=== PATIENT | female | born 1960 | race Caucasian/White ===

== ENCOUNTER 2020-07-08 14:43 | Emergency (ER) | payer BC ==
[2020-07-08 14:59] VITALS: BP 122/71
--- NOTE | 2020-07-08 15:14 | ED Physician Documentation ---
PD HPI UPPER EXT INJURY - Stated complaint Stated Complaint: GLF,RT SHOULDER/HIP/KNEE PX - Chief complaint Chief Complaint: Trauma Ext - History obtained from History obtained from: Patient - History of Present Illness Location: Right, Shoulder, Other (lateral hip and anterior knee) Type of injury: Fall ([place], mainly catching herself onto right shoulder. Some at right knee and lateral hip. Did not strike head.) Where injury occurred: [place] Timing - onset: Today Timing - details: Abrupt onset, Still present (pain in the shoulder) Worsened by: Moving, Palpating Associated symptoms: No: Weakness, Numbness, Swelling Similar symptoms before: Other (has been having pain with shoulder rotator cuff on right with awaiting physical therapy. having much worse pain with the fall onto it.) Recently seen: Not recently seen Review of Systems Constitutional: denies: Fever, Chills Nose: denies: Rhinorrhea / runny nose, Congestion Throat: denies: Sore throat Respiratory: denies: Cough Skin: denies: Abrasion (s), Laceration (s) Neurologic: denies: Focal weakness, Numbness PD PAST MEDICAL HISTORY - Past Medical History Cardiovascular: None Respiratory: None Musculoskeletal: Other (right rotator cuff tendonitis. ) - Present Medications Home Medications: Ambulatory Orders Medication Instructions Recorded Confirmed tiZANidine [Zanaflex] 4 mg PO Q8H PRN #25 tablet 07/08/20 - Allergies Allergies/Adverse Reactions: Allergies Allergy/AdvReac Type Severity Reaction Status Date / Time No Known Drug Allergies Allergy Verified 07/08/20 14:59 PD ED PE NORMAL - Vitals Vital signs reviewed: Yes - General General: Alert and oriented X 3, No acute distress, Well developed/nourished - HEENT HEENT: Atraumatic - Neck Neck: Supple, no meningeal sign, No bony TTP - Cardiac Cardiac: RRR, No murmur - Respiratory Respiratory: Clear bilaterally, Other (no chestwall tenderness) - Abdomen Abdomen: Soft, Non tender - Derm Derm: Normal color, Warm and dry - Extremities Extremities: Other (right shoulder with tenderness anterolateral without effusion. No redness/abrasion. ) - Neuro Neuro: Alert and oriented X 3, No motor deficit, No sensory deficit Results - Vitals Vitals: Vital Signs - 24 hr 07/08/20 14:53 Temperature 36.2 C L Heart Rate 77 Respiratory 14 Rate Blood Pressure 122/71 O2 Saturation 98 Oxygen O2 Source Room air - Rads (name of study) right shoulder Radiology: Prelim report reviewed (no acute injury. Calcific changes noted c/w chronic tendonitis. ), See rad report PD MEDICAL DECISION MAKING - ED course Complexity details: reviewed results, considered differential (worsened rotator cuff underlying inflammation. ), d/w patient Departure - Departure Disposition: 01 Home, Self Care Clinical Impression: Accidental fall Qualifiers: Encounter type: initial encounter Qualified Code(s): W19.XXXA - Unspecified fall, initial encounter Right shoulder strain Qualifiers: Encounter type: initial encounter Qualified Code(s): S46.911A - Strain of unspecified muscle, fascia and tendon at shoulder and upper arm level, right arm, initial encounter Condition: Stable Record reviewed to determine appropriate education?: Yes Instructions: ED Sprain Shoulder Follow-Up: Jazmín Mcduffie MD [Primary Care Provider] - Prescriptions: tiZANidine [Zanaflex] 4 mg PO Q8H PRN #25 tablet PRN Reason: Spasms Comments: Use the sling as needed for comfort and support of the shoulder with the acute injury. Gentle range of motion a few times a day to prevent stiffening of the shoulder. Progress use back to baseline as tolerated. Tylenol 500 mg 4 times a day for the next several days to week. Add tizanidine muscle relaxant for stiffness and spasm. Follow-up with your primary care. Discharge Date/Time: 07/08/20 16:30
[2020-07-08] MEDS ORDERED: ACETAMINOPHEN 325 MG TABLET PO STA (15:31)
[2020-07-08] MEDS ORDERED: methocarbamoL 500 MG TABLET PO STA (15:31)
--- NOTE | 2020-07-08 15:55 | XRAY Report ---
PROCEDURE: Shoulder 3 View RT INDICATIONS: fall to right shoulder TECHNIQUE: 3 views of the shoulder were acquired. COMPARISON: None. FINDINGS: Bones: No fractures or dislocations. No suspicious bony lesions. Visualized ribs appear intact. S evere acromioclavicular degenerative narrowing. Soft tissues: No suspicious soft tissue calcifications. IMPRESSION: No visualized acute fracture or dislocation. However, occult injury cannot be excluded. Recommend short interval imaging follow-up in 7-10 days as clinically indicated for additional evalua tion. Reviewed by: Chyna Topete MD on 07/08/2020 3:53 PM [facility] Approved by: Chyna Topete MD on 07/08/2020 3:53 PM [facility] Station ID: [id number]
== END 2020-07-08 16:30 | disposition home or self-care (01) ==
LOC: ED 14:43
DX: S46.911A Strain of unspecified muscle, fascia and tendon at shoulder and upper arm level, right arm, initial encounter (principal); W18.09XA Striking against other object with subsequent fall, initial encounter; Y93.I9 Activity, other involving external motion
CPT/HCPCS: 73030; 99283; 99284; A9270

== ENCOUNTER 2020-07-20 16:55 | Outpatient (CLI) | payer BC | END 2020-07-20 16:56 | disposition home or self-care (01) | LOC: COV 16:55 | PROVIDERS: ATTEND Student in an Organized Health Care Education/Training Program | DX: Z01.812 Encounter for preprocedural laboratory examination (principal); M75.121 Complete rotator cuff tear or rupture of right shoulder, not specified as traumatic; Z20.822 Contact with and (suspected) exposure to COVID-19 ==

== ENCOUNTER 2020-09-09 13:39 | Outpatient (CLI) | payer BC | END 2020-09-09 13:40 | disposition home or self-care (01) | LOC: COV 13:39 | PROVIDERS: ATTEND Otolaryngology | DX: Z01.812 Encounter for preprocedural laboratory examination (principal); Z20.822 Contact with and (suspected) exposure to COVID-19 | CPT/HCPCS: 86769 ==

== ENCOUNTER 2020-12-17 11:25 | Outpatient (CLI) | payer BC ==
[2020-12-17 14:38] LABS: BASOPHILS % (AUTO) 0.7 %; EOSINOPHILS # (AUTO) 0.1 10^3/uL (0.0-0.7); HCT - HEMATOCRIT 44.5 % (37.0-47.0); HGB - HEMOGLOBIN 14.6 g/dL (12.0-16.0); LYMPHOCYTES # (AUTO) 1.6 10^3/uL (1.5-3.5); LYMPHOCYTES % (AUTO) 28.1 %; MEAN CORPUSCULAR HEMOGLOBIN 29.3 pg (27.0-31.0); MEAN CORPUSCULAR HGB CONC 32.8 g/dL (32.0-36.0); MEAN CORPUSCULAR VOLUME 89.4 fL (81.0-99.0); MEAN PLATELET VOLUME 10.9 fL (7.9-10.8); MONOCYTES # (AUTO) 0.4 10^3/uL (0.0-1.0); MONOCYTES % (AUTO) 7.2 %; NEUTROPHILS # (AUTO) 3.5 10^3/uL (1.5-6.6); NEUTROPHILS % (AUTO) 61.8 %; PLT - PLATELET COUNT 226 10^3/uL (130-450); RED BLOOD COUNT 4.98 10^6/uL (4.20-5.40); RED CELL DISTRIBUTION WIDTH 13.8 % (12.0-15.0); WHITE BLOOD COUNT 5.6 x10^3/uL (4.8-10.8)
[2020-12-17 15:29] LABS: THYROID STIMULATING HORMONE 0.64 uIU/mL (0.34-5.60)
[2020-12-17 15:34] LABS: ALBUMIN 4.4 g/dL (3.2-5.5); ALBUMIN/GLOBULIN RATIO 1.7 (1.0-2.2); BILIRUBIN,TOTAL 0.8 mg/dL (0.2-1.0); CALCIUM 9.9 mg/dL (8.5-10.3); CREATININE 0.6 mg/dL (0.4-1.0); POTASSIUM 4.5 mmol/L (3.5-5.0)
[2020-12-17 15:37] LABS: FERRITIN 22.3 ng/mL (11.0-306.8)
[2020-12-17 15:40] LABS: FOLATE 12.56 ng/mL (5.90 - >24.8)
== END 2020-12-17 11:26 | disposition home or self-care (01) ==
LOC: LAB.S 11:25
DX: K90.0 Celiac disease (principal); E55.9 Vitamin D deficiency, unspecified
CPT/HCPCS: 36415; 80053; 82306; 82607; 82728; 82746; 83540; 84443; 84466; 85025

== ENCOUNTER 2021-01-15 10:58 | Outpatient (CLI) | payer BC ==
[2021-01-15 16:02] LABS: FREE T3 2.73 pg/mL (2.5-3.9); THYROID STIMULATING HORMONE 0.54 uIU/mL (0.34-5.60)
[2021-01-15 16:03] LABS: FREE T4 (FREE THYROXINE) 1.15 ng/dL (0.58-1.64)
== END 2021-01-15 10:59 | disposition home or self-care (01) ==
LOC: LAB.S 10:58
PROVIDERS: ATTEND Internal Medicine
DX: E05.00 Thyrotoxicosis with diffuse goiter without thyrotoxic crisis or storm (principal)
CPT/HCPCS: 36415; 84439; 84443; 84481

== ENCOUNTER 2021-01-27 08:32 | Outpatient (CLI) | payer BC ==
[2021-01-27 09:28] LABS: BASOPHILS # (AUTO) 0.1 10^3/uL (0.0-0.1); BASOPHILS % (AUTO) 1.3 %; EOSINOPHILS # (AUTO) 0.1 10^3/uL (0.0-0.7); EOSINOPHILS % (AUTO) 2.3 %; HCT - HEMATOCRIT 43.1 % (37.0-47.0); HGB - HEMOGLOBIN 14.1 g/dL (12.0-16.0); LYMPHOCYTES # (AUTO) 1.4 10^3/uL (1.5-3.5); LYMPHOCYTES % (AUTO) 28.7 %; MEAN CORPUSCULAR HEMOGLOBIN 29.5 pg (27.0-31.0); MEAN CORPUSCULAR HGB CONC 32.7 g/dL (32.0-36.0); MEAN CORPUSCULAR VOLUME 90.2 fL (81.0-99.0); MEAN PLATELET VOLUME 9.5 fL (7.9-10.8); MONOCYTES # (AUTO) 0.3 10^3/uL (0.0-1.0); MONOCYTES % (AUTO) 6.2 %; NEUTROPHILS # (AUTO) 2.9 10^3/uL (1.5-6.6); NEUTROPHILS % (AUTO) 61.1 %; PLT - PLATELET COUNT 215 10^3/uL (130-450); RED BLOOD COUNT 4.78 10^6/uL (4.20-5.40); RED CELL DISTRIBUTION WIDTH 14.3 % (12.0-15.0); WHITE BLOOD COUNT 4.7 x10^3/uL (4.8-10.8)
[2021-01-27 09:41] LABS: ALBUMIN 4.2 g/dL (3.2-5.5); ALBUMIN/GLOBULIN RATIO 1.7 (1.0-2.2); BILIRUBIN,TOTAL 0.8 mg/dL (0.2-1.0); CALCIUM 9.7 mg/dL (8.5-10.3); CREATININE 0.7 mg/dL (0.4-1.0); TOTAL PROTEIN 6.7 g/dL (6.7-8.2)
[2021-01-27 09:58] LABS: CORTISOL 15.7 ug/dL
[2021-01-27 09:59] LABS: THYROID STIMULATING HORMONE 0.59 uIU/mL (0.34-5.60)
[2021-01-27 10:01] LABS: FREE T4 (FREE THYROXINE) 1.33 ng/dL (0.58-1.64)
[2021-01-27 10:02] LABS: FREE T3 2.67 pg/mL (2.5-3.9)
[2021-01-27 10:07] LABS: FERRITIN 25.5 ng/mL (11.0-306.8)
[2021-01-27 10:10] LABS: FOLATE 10.2 ng/mL (5.90 - >24.8)
[2021-01-27 13:14] LABS: ESTIMATED AVERAGE GLUCOSE 108 mg/dL (70-100); HEMOGLOBIN A1c% 5.4 % (4.27-6.07)
[2021-01-29 11:16] LABS: COMPLEMENT COMPONENT C3C 131 mg/dL (83-193)
[2021-02-06 11:26] LABS: SELENIUM 131 mcg/L (63-160)
[2021-02-07 07:22] LABS: COPPER 82 mcg/dL (70-175)
== END 2021-01-27 08:33 | disposition home or self-care (01) ==
LOC: LAB 08:32
PROVIDERS: ATTEND Family Medicine Sports Medicine
DX: E16.1 Other hypoglycemia (principal); E03.9 Hypothyroidism, unspecified; E88.81 Metabolic syndrome and other insulin resistance; E78.5 Hyperlipidemia, unspecified; K90.0 Celiac disease; E55.9 Vitamin D deficiency, unspecified; E61.1 Iron deficiency; R79.89 Other specified abnormal findings of blood chemistry; E78.41 Elevated Lipoprotein(a)
CPT/HCPCS: 36415; 80053; 80061; 81599; 82024; 82172; 82306; 82525; 82533; 82607; 82728; 82746; 83036; 83520; 83695; 83704; 84255; 84439; 84443; 84481; 84630; 85025; 86141; 86160

== ENCOUNTER 2021-02-18 08:00 | Outpatient (CLI) | payer BC ==
[2021-02-18 16:00] LABS: BILIRUBIN,URINE NEGATIVE (NEGATIVE); GLUCOSE, URINE (UA) NEGATIVE (NEGATIVE); KETONES,URINE (UA) NEGATIVE (NEGATIVE); LEUKOCYTE ESTERASE, URINE MODERATE (NEGATIVE); NITRITE,URINE POSITIVE (NEGATIVE); OCCULT BLOOD,URINE NEGATIVE (NEGATIVE); PROTEIN,URINE TRACE mg/dL (NEGATIVE); UROBILINOGEN,URINE 1 (NORMAL) E.U./dL (NORMAL)
[2021-02-18 16:26] LABS: BACTERIA,URINE Few /HPF (None Seen); CLARITY,URINE SL. CLOUDY (CLEAR); RBC,URINE 0-5 /HPF (0-5); SQUAMOUS EPITHELIAL CELL,UR RARE Squamous (<= Few); WBC,URINE >25 /HPF (0-5)
== END 2021-02-18 23:59 | disposition home or self-care (01) ==
LOC: LAB.S 08:00
PROVIDERS: ATTEND Emergency Medicine
DX: R30.0 Dysuria (principal)
CPT/HCPCS: 81001; 87086; 87181

== ENCOUNTER 2021-02-22 09:48 | Outpatient (CLI) | payer BC ==
--- NOTE | 2021-03-01 14:19 | DEXA Report ---
PROCEDURE: Dexa Spine and/or Hip INDICATIONS: VITAMIN D DEFICIENCY TECHNIQUE: Dual energy x-ray absorptiometry (DXA) was performed on a [employer] System. Regions measur ed are the AP Spine, femoral neck, and if needed forearm. COMPARISON: None. FINDINGS: Lumbar Spine: Bone Mineral Density 1.434 g/cm/cm,T score 2.1, normal Left Hip: Bone Mineral Density 0.905 g/cm/cm,T score -0.8, normal Left Femoral Neck: Bone Mineral Density 0.853 g/cm/cm, T score -1.3, mild osteopenia (T score greater or equal to -1.0: NORMAL) (T score from -1.1 to -2.4: OSTEOPENIA) (T score less than or equal to -2.5 to: OSTEOPOROSIS) Impression: Mild osteopenia in the left femoral neck. Patients with diagnosis of osteoporosis or osteopenia should have regular bone mineral density assess ment. For those eligible for Medicare, routine testing is allowed once every 2 years. Testing frequ ency can be increased for patients who have rapidly progressing disease or for those who are receivin g medical therapy to restore bone mass. Reviewed by: Chyna Topete MD on 03/01/2021 2:18 PM PDT Approved by: Chyna Topete MD on 03/01/2021 2:18 PM PDT Station ID: [id number]
== END 2021-02-22 09:49 | disposition home or self-care (01) ==
LOC: DI 09:48
PROVIDERS: ATTEND Internal Medicine Gastroenterology
DX: Z13.820 Encounter for screening for osteoporosis (principal); M85.88 Other specified disorders of bone density and structure, other site; E55.9 Vitamin D deficiency, unspecified

== ENCOUNTER 2021-03-14 13:28 | Outpatient (CLI) | payer BC ==
--- NOTE | 2021-03-15 11:49 | Mammography Report ---
BILATERAL DIGITAL SCREENING MAMMOGRAM 3D/2D WITH AUGMENTATION: 03/14/2021 CLINICAL: Routine screening. Personal history of left breast cancer. Comparison is made to exams dated: 12/10/2019 mammogram, 11/21/2018 mammogram, and 07/04/2018 mammogram - [facility]. The tissue of both breasts is predominantly fatty. Bilateral breast implants are stable and intact. There are benign calcifications in the right breast . There also is a biopsy clip in the right breast. Additionally, there are benign post operative fi ndings and biopsy clips in the left breast. No significant masses, calcifications, or other findings are seen in either breast. There has been no significant interval change. IMPRESSION: BENIGN There is no mammographic evidence of malignancy. A 1 year screening mammogram is recommended. This exam was interpreted at Station ID: [id number]. NOTE: For mammograms, a report in lay terms will be sent to the patient. Approximately 15% of breast malignancies will not be visualized mammographically. In the management of a palpable breast mass, a negative mammogram must not discourage biopsy of a clinically suspicious lesion. Electronically Signed By: Leydi [email or web address]:03/15/2021 11:21:21 ACR BI-RADS Category 2: Benign Finding(s) 3342F PARENCHYMAL PATTERN: (F) - The breast(s) demonstrate(s) diffuse fatty replacement. BI-RADS CATEGORY: (2) - 2 RECOMMENDATION: (ANNUAL) - Recommend routine annual screening mammography. [id number] 1 year screening LATERALITY: (B)
== END 2021-03-14 13:29 | disposition home or self-care (01) ==
LOC: DI.S 13:28
DX: Z12.31 Encounter for screening mammogram for malignant neoplasm of breast (principal); Z85.3 Personal history of malignant neoplasm of breast; Z98.82 Breast implant status

== ENCOUNTER 2021-07-16 13:30 | Outpatient (CLI) | payer BC ==
[2021-07-16 21:13] LABS: THYROID STIMULATING HORMONE 0.27 uIU/mL (0.34-5.60)
[2021-07-16 21:14] LABS: FREE T3 2.57 pg/mL (2.5-3.9)
[2021-07-16 21:15] LABS: FREE T4 (FREE THYROXINE) 1.23 ng/dL (0.58-1.64)
== END 2021-07-16 13:31 | disposition home or self-care (01) ==
LOC: LAB.S 13:30
PROVIDERS: ATTEND Internal Medicine
DX: E05.00 Thyrotoxicosis with diffuse goiter without thyrotoxic crisis or storm (principal)
CPT/HCPCS: 36415; 84439; 84443; 84481

== ENCOUNTER 2021-08-19 08:00 | Outpatient (CLI) | payer BC ==
--- NOTE | 2021-08-19 16:53 | XRAY Report ---
PROCEDURE: Chest 2 View X-Ray INDICATIONS: COUGH TECHNIQUE: 2 view(s) of the chest. COMPARISON: None. FINDINGS: Surgical changes and devices: Left chest wall surgical clips. Suture anchor in the right humerus. Lungs and pleura: No pleural effusions or pneumothorax. Lungs are clear. Mediastinum: Mediastinal contours are normal. Heart size is normal. Bones and chest wall: No suspicious bony abnormalities. Soft tissues appear unremarkable. IMPRESSION: No acute cardiopulmonary disease process. Reviewed by: Laurie Davis MD, PhD on 08/19/2021 4:52 PM PDT Approved by: Laurie Davis MD, PhD on 08/19/2021 4:52 PM PDT Station ID: [id number]
== END 2021-08-19 23:59 | disposition home or self-care (01) ==
LOC: DI.S 08:00
PROVIDERS: ATTEND Registered Nurse
DX: R05.9 Cough, unspecified (principal); R53.83 Other fatigue

== ENCOUNTER 2021-08-19 08:00 | Outpatient (CLI) | payer BC | END 2021-08-19 23:59 | disposition home or self-care (01) | LOC: LAB.R 08:00 | PROVIDERS: ATTEND Registered Nurse | DX: R05.9 Cough, unspecified (principal); Z20.822 Contact with and (suspected) exposure to COVID-19 ==

== ENCOUNTER 2021-09-06 14:14 | Outpatient (CLI) | payer BC ==
[2021-09-06 20:46] LABS: FREE T3 2.84 pg/mL (2.5-3.9)
[2021-09-06 20:47] LABS: FREE T4 (FREE THYROXINE) 1.11 ng/dL (0.58-1.64); THYROID STIMULATING HORMONE 1.04 uIU/mL (0.34-5.60)
== END 2021-09-06 14:15 | disposition home or self-care (01) ==
LOC: LAB.S 14:14
PROVIDERS: ATTEND Internal Medicine
DX: E89.0 Postprocedural hypothyroidism (principal)
CPT/HCPCS: 36415; 84439; 84443; 84481

== ENCOUNTER 2022-02-01 11:22 | Outpatient (CLI) | payer BC ==
[2022-02-01 14:38] LABS: BASOPHILS # (AUTO) 0.1 10^3/uL (0.0-0.1); BASOPHILS % (AUTO) 0.9 %; EOSINOPHILS # (AUTO) 0.2 10^3/uL (0.0-0.7); HCT - HEMATOCRIT 41.2 % (37.0-47.0); HGB - HEMOGLOBIN 13.6 g/dL (12.0-16.0); LYMPHOCYTES # (AUTO) 2.1 10^3/uL (1.5-3.5); LYMPHOCYTES % (AUTO) 32.7 %; MEAN CORPUSCULAR HEMOGLOBIN 29.8 pg (27.0-31.0); MEAN CORPUSCULAR VOLUME 90.4 fL (81.0-99.0); MONOCYTES # (AUTO) 0.4 10^3/uL (0.0-1.0); MONOCYTES % (AUTO) 6.9 %; NEUTROPHILS # (AUTO) 3.6 10^3/uL (1.5-6.6); NEUTROPHILS % (AUTO) 56.3 %; PLT - PLATELET COUNT 208 10^3/uL (130-450); RED BLOOD COUNT 4.56 10^6/uL (4.20-5.40); RED CELL DISTRIBUTION WIDTH 12.9 % (12.0-15.0); WHITE BLOOD COUNT 6.4 x10^3/uL (4.8-10.8)
[2022-02-01 15:24] LABS: ALBUMIN 4.2 g/dL (3.2-5.5); ALBUMIN/GLOBULIN RATIO 1.6 (1.0-2.2); BILIRUBIN,TOTAL 0.4 mg/dL (0.2-1.0); CALCIUM 9.7 mg/dL (8.5-10.3); CREATININE 0.8 mg/dL (0.4-1.0); POTASSIUM 4.6 mmol/L (3.5-5.0); TOTAL PROTEIN 6.8 g/dL (6.7-8.2)
[2022-02-01 15:33] LABS: THYROID STIMULATING HORMONE 0.23 uIU/mL (0.34-5.60)
[2022-02-01 15:40] LABS: FERRITIN 85.1 ng/mL (11.0-306.8)
== END 2022-02-01 11:23 | disposition home or self-care (01) ==
LOC: LAB.S 11:22
PROVIDERS: ATTEND Internal Medicine Gastroenterology
DX: K90.0 Celiac disease (principal)
CPT/HCPCS: 36415; 80053; 82306; 82607; 82728; 82746; 83540; 84443; 84466; 85025

== ENCOUNTER 2022-03-16 09:07 | Outpatient (CLI) | payer BC ==
--- NOTE | 2022-03-17 09:43 | Mammography Report ---
BILATERAL DIGITAL SCREENING MAMMOGRAM 3D/2D WITH AUGMENTATION: 03/16/2022 CLINICAL: Routine screening. Personal history of left breast cancer. Comparison is made to exams dated: 03/14/2021 mammogram - [facility], 12/10/2019 ma mmogram, 11/21/2018 mammogram, and 07/04/2018 mammogram - [facility]. Both breasts are almost entirely fatty (category a/<25% glandular tissue). Bilateral breast implants are stable and intact. There are benign calcifications in the right breast . There also is a biopsy clip in the right breast. Additionally, there are benign post operative fi ndings and biopsy clips in the left breast. No significant masses, calcifications, or other findings are seen in either breast. There has been no significant interval change. IMPRESSION: BENIGN There is no mammographic evidence of malignancy. A 1 year screening mammogram is recommended. This exam was interpreted at Station ID: [id number]. NOTE: For mammograms, a report in lay terms will be sent to the patient. Approximately 15% of breast malignancies will not be visualized mammographically. In the management of a palpable breast mass, a negative mammogram must not discourage biopsy of a clinically suspicious lesion. Electronically Signed By: Daryn Baker M.D. [email or web address]:03/16/2022 15:59:54 ACR BI-RADS Category 2: Benign Finding(s) 3342F PARENCHYMAL PATTERN: (F) - The breast(s) demonstrate(s) diffuse fatty replacement. BI-RADS CATEGORY: (2) - 2 RECOMMENDATION: (ANNUAL) - Recommend routine annual screening mammography. [id number] 1 year screening LATERALITY: (B)
== END 2022-03-16 09:08 | disposition home or self-care (01) ==
LOC: DI.S 09:07
DX: Z12.31 Encounter for screening mammogram for malignant neoplasm of breast (principal); Z85.3 Personal history of malignant neoplasm of breast

== ENCOUNTER 2022-06-07 11:30 | Outpatient (CLI) | payer BC ==
[2022-06-08 09:10] LABS: HCV AB <0.1 s/co ratio (0.0-0.9)
== END 2022-06-07 11:31 | disposition home or self-care (01) ==
LOC: LAB.S 11:30
PROVIDERS: ATTEND Registered Nurse
DX: Z00.00 Encounter for general adult medical examination without abnormal findings (principal); E88.81 Metabolic syndrome and other insulin resistance; E16.1 Other hypoglycemia; I25.10 Atherosclerotic heart disease of native coronary artery without angina pectoris; E78.5 Hyperlipidemia, unspecified; E03.9 Hypothyroidism, unspecified; K90.0 Celiac disease; E55.9 Vitamin D deficiency, unspecified; E27.0 Other adrenocortical overactivity; E78.41 Elevated Lipoprotein(a)
CPT/HCPCS: 36415; 81599; 83003; 84305; 86803

== ENCOUNTER 2022-06-20 13:26 | Outpatient (CLI) | payer BC ==
[2022-06-20 20:43] LABS: THYROID STIMULATING HORMONE 0.46 uIU/mL (0.34-5.60)
[2022-06-20 20:45] LABS: FREE T3 2.46 pg/mL (2.5-3.9); FREE T4 (FREE THYROXINE) 1.14 ng/dL (0.58-1.64)
== END 2022-06-20 13:27 | disposition home or self-care (01) ==
LOC: LAB.S 13:26
PROVIDERS: ATTEND Internal Medicine
DX: E89.0 Postprocedural hypothyroidism (principal); E05.00 Thyrotoxicosis with diffuse goiter without thyrotoxic crisis or storm
CPT/HCPCS: 36415; 84439; 84443; 84481

== ENCOUNTER 2022-06-22 10:18 | Outpatient (CLI) | payer BC ==
[2022-06-22 15:31] LABS: % IRON SATURATION 20 % (20-50); IRON 84 ug/dL (28-170); TOTAL IRON BINDING CAPACITY 423 ug/dL (250-450); TRANSFERRIN 302 mg/dL (192-382)
== END 2022-06-22 10:19 | disposition home or self-care (01) ==
LOC: LAB.S 10:18
PROVIDERS: ATTEND Chiropractor
DX: D50.9 Iron deficiency anemia, unspecified (principal); E03.9 Hypothyroidism, unspecified
CPT/HCPCS: 36415; 82728; 83540; 84466; 84482

== ENCOUNTER 2022-07-16 08:00 | Outpatient (CLI) | payer BC | END 2022-07-16 23:59 | disposition home or self-care (01) | LOC: LAB.S 08:00 | PROVIDERS: ATTEND Physician Assistant | DX: R30.0 Dysuria (principal) | CPT/HCPCS: 87086 ==

== ENCOUNTER 2023-04-03 09:55 | Outpatient (CLI) | payer BC ==
[2023-04-03 10:50] LABS: BASOPHILS # (AUTO) 0.1 10^3/uL (0.0-0.1); BASOPHILS % (AUTO) 0.8 %; EOSINOPHILS # (AUTO) 0.1 10^3/uL (0.0-0.7); EOSINOPHILS % (AUTO) 1.7 %; HGB - HEMOGLOBIN 14.5 g/dL (12.0-16.0); LYMPHOCYTES # (AUTO) 1.5 10^3/uL (1.5-3.5); LYMPHOCYTES % (AUTO) 22.8 %; MEAN CORPUSCULAR HEMOGLOBIN 29.7 pg (27.0-31.0); MEAN CORPUSCULAR HGB CONC 32.2 g/dL (32.0-36.0); MEAN PLATELET VOLUME 9.7 fL (7.9-10.8); MONOCYTES # (AUTO) 0.5 10^3/uL (0.0-1.0); MONOCYTES % (AUTO) 7.7 %; NEUTROPHILS # (AUTO) 4.3 10^3/uL (1.5-6.6); NEUTROPHILS % (AUTO) 66.7 %; PLT - PLATELET COUNT 235 10^3/uL (130-450); RED BLOOD COUNT 4.89 10^6/uL (4.20-5.40); RED CELL DISTRIBUTION WIDTH 14.5 % (12.0-15.0); WHITE BLOOD COUNT 6.4 x10^3/uL (4.8-10.8)
[2023-04-03 11:06] LABS: ALBUMIN 4.3 g/dL (3.2-5.5); BILIRUBIN,TOTAL 0.6 mg/dL (0.2-1.0); CALCIUM 10.1 mg/dL (8.5-10.3); CREATININE 0.9 mg/dL (0.6-1.3); POTASSIUM 4.3 mmol/L (3.5-4.5); TOTAL PROTEIN 6.4 g/dL (6.4-8.9)
[2023-04-03 11:21] LABS: THYROID STIMULATING HORMONE 1.67 uIU/mL (0.34-5.60)
[2023-04-03 11:29] LABS: FERRITIN 19.5 ng/mL (11.0-306.8)
[2023-04-04 07:10] LABS: VITAMIN D 25-HYDROXY 50.2 ng/mL (30.0-100.0)
== END 2023-04-03 09:56 | disposition home or self-care (01) ==
LOC: LAB 09:55
PROVIDERS: ATTEND Internal Medicine Gastroenterology
DX: R14.0 Abdominal distension (gaseous) (principal); R10.13 Epigastric pain; K90.0 Celiac disease; R19.7 Diarrhea, unspecified; K64.0 First degree hemorrhoids; E11.9 Type 2 diabetes mellitus without complications; E55.9 Vitamin D deficiency, unspecified; R10.84 Generalized abdominal pain; R10.32 Left lower quadrant pain; Z98.84 Bariatric surgery status; R19.4 Change in bowel habit; K21.9 Gastro-esophageal reflux disease without esophagitis
CPT/HCPCS: 36415; 80053; 82306; 82607; 82728; 82746; 82784; 83540; 84443; 84466; 85025; 86231; 86364

== ENCOUNTER 2023-04-03 09:57 | Outpatient (CLI) | payer BC ==
--- NOTE | 2023-04-03 21:57 | DEXA Report ---
PROCEDURE: Dexa Spine and/or Hip INDICATIONS: OSTEOPENIA TECHNIQUE: Dual energy x-ray absorptiometry (DXA) was performed on a [employer] System. Regions measur ed are the AP Spine, femoral neck, and if needed forearm. COMPARISON: DEXA, 02/22/2021 FINDINGS: Lumbar Spine: Bone Mineral Density 1.413 g/cm/cm,T score 1.9. Not significantly changed. Left Femoral Neck: Bone Mineral Density 0.933 g/cm/cm, T score -0.8. Left Hip: Bone Mineral Density 0.917 g/cm/cm,T score -0.7. Not significantly changed. (T score greater or equal to -1.0: NORMAL) (T score from -1.1 to -2.4: OSTEOPENIA) (T score less than or equal to -2.5 to: OSTEOPOROSIS) Impression: 1. By WHO criteria, this patient has normal bone density. 2. Compared to the last exam, there is no significant change. Patients with diagnosis of osteoporosis or osteopenia should have regular bone mineral density assess ment. For those eligible for Medicare, routine testing is allowed once every 2 years. Testing frequ ency can be increased for patients who have rapidly progressing disease or for those who are receivin g medical therapy to restore bone mass. Reviewed by: Leland Romero MD on 04/03/2023 9:55 PM PST Approved by: Leland Romero MD on 04/03/2023 9:55 PM PST Station ID: [id number]
== END 2023-04-03 09:58 | disposition home or self-care (01) ==
LOC: DI 09:57
PROVIDERS: ATTEND Internal Medicine Gastroenterology
DX: Z98.84 Bariatric surgery status (principal); K90.0 Celiac disease; K21.9 Gastro-esophageal reflux disease without esophagitis; E11.9 Type 2 diabetes mellitus without complications; E55.9 Vitamin D deficiency, unspecified; K86.81 Exocrine pancreatic insufficiency; R14.0 Abdominal distension (gaseous); R10.13 Epigastric pain; R19.7 Diarrhea, unspecified; K64.0 First degree hemorrhoids; R10.84 Generalized abdominal pain
CPT/HCPCS: 36415; 80053; 82306; 82607; 82728; 82746; 82784; 83540; 84443; 84466; 85025; 86231; 86364

== ENCOUNTER 2023-04-13 14:21 | Outpatient (CLI) | payer BC ==
[2023-04-13 21:03] LABS: THYROID STIMULATING HORMONE 1.38 uIU/mL (0.34-5.60)
== END 2023-04-13 14:22 | disposition home or self-care (01) ==
LOC: LAB.S 14:21
PROVIDERS: ATTEND Internal Medicine
DX: E03.9 Hypothyroidism, unspecified (principal); K90.0 Celiac disease; E88.9 Metabolic disorder, unspecified; E16.1 Other hypoglycemia; E55.9 Vitamin D deficiency, unspecified; E78.5 Hyperlipidemia, unspecified; E61.1 Iron deficiency; E27.0 Other adrenocortical overactivity; I25.10 Atherosclerotic heart disease of native coronary artery without angina pectoris; R79.89 Other specified abnormal findings of blood chemistry; E78.41 Elevated Lipoprotein(a)
CPT/HCPCS: 36415; 81599; 83789; 84439; 84443; 84481

== ENCOUNTER 2023-11-13 14:15 | Outpatient (CLI) | payer BC ==
[2023-11-13 20:25] LABS: POTASSIUM 3.8 mmol/L (3.5-4.5)
[2023-11-13 20:30] LABS: CREATININE 0.8 mg/dL (0.6-1.3)
[2023-11-13 20:32] LABS: BILIRUBIN,URINE NEGATIVE (NEGATIVE); GLUCOSE, URINE (UA) NEGATIVE (NEGATIVE); KETONES,URINE (UA) NEGATIVE (NEGATIVE); LEUKOCYTE ESTERASE, URINE NEGATIVE (NEGATIVE); NITRITE,URINE NEGATIVE (NEGATIVE); OCCULT BLOOD,URINE NEGATIVE (NEGATIVE); PH,URINE 5.5 PH (5.0-7.5); PROTEIN,URINE NEGATIVE (NEGATIVE); UROBILINOGEN,URINE 0.2 (NORMAL) E.U./dL (NORMAL)
[2023-11-13 20:36] LABS: CLARITY,URINE CLEAR (CLEAR)
== END 2023-11-13 14:16 | disposition home or self-care (01) ==
LOC: LAB.S 14:15
PROVIDERS: ATTEND Family Medicine Sports Medicine
DX: K90.0 Celiac disease (principal); E88.819 Insulin resistance, unspecified; E16.1 Other hypoglycemia; E78.5 Hyperlipidemia, unspecified; E03.9 Hypothyroidism, unspecified; E61.1 Iron deficiency; I25.10 Atherosclerotic heart disease of native coronary artery without angina pectoris; E78.41 Elevated Lipoprotein(a); E55.9 Vitamin D deficiency, unspecified; E73.9 Lactose intolerance, unspecified; E27.0 Other adrenocortical overactivity; E87.0 Hyperosmolality and hypernatremia
CPT/HCPCS: 36415; 80051; 81001; 81003; 82565; 83930; 83935; 84520; 87086